=== PATIENT | female | born 1995 | race Caucasian/White ===

== ENCOUNTER 2022-01-17 05:50 | Emergency (ER) | payer MEDICAID ==
[~2022-01-17] VITALS: Ht 154.9 cm; Wt 87.0 kg
[2022-01-17 05:59] VITALS: BP 116/87
[2022-01-17 07:08] LABS: CLARITY URINE CLEAR (CLEAR); COLOR URINE YELLOW (YELLOW); KETONES URINE NEGATIVE (NEGATIVE); LEUKOCYTE ESTERASE URINE 1+ (NEGATIVE); NITRITE URINE NEGATIVE (NEGATIVE); OCCULT BLOOD URINE NEGATIVE (NEGATIVE); PROTEIN URINE NEGATIVE (NEGATIVE); SPECIFIC GRAVITY URINE 1.018 (1.005-1.030)
[2022-01-17 07:28] LABS: CHLORIDE 106 mEq/L (98-107)
[2022-01-17 07:34] LABS: BASOPHILS % 0.5 % (0.0-2.0); EOSINOPHILS % 2.1 % (0.0-5.0); HEMOGLOBIN. 8.7 g/dL (12.0-16.0); LYMPHOCYTES % 26.5 % (20.0-50.0); MEAN CORPUSCULAR HEMOGLOBIN 20.8 pg (28.0-32.0); MEAN PLATELET VOLUME 8.3 fl (7.4-10.4); MONOCYTES % 8.7 % (2.0-8.0); NEUTROPHILS % 62.2 % (40.0-76.0); PLATELET 306 x1000/uL (130-400); RED BLOOD CELL COUNT 4.19 mill/uL (4.2-5.4); RED CELL DISTRIBUTION WIDTH 18.5 % (11.6-14.6)
[2022-01-17 08:01] LABS: *AMPHETAMINES SCREEN URINE NEGATIVE (NEGATIVE); *BARBITURATES SCREEN URINE NEGATIVE (NEGATIVE); *BENZODIAZEPINES SCREEN URINE NEGATIVE (NEGATIVE); *COCAINE SCREEN URINE NEGATIVE (NEGATIVE); CANNABINOID URINE SCREEN NEGATIVE (NEGATIVE); METHADONE URINE SCREEN NEGATIVE (NEGATIVE); OPIATES URINE SCREEN NEGATIVE (NEGATIVE); PHENCYCLIDINE URINE SCREEN NEGATIVE (NEGATIVE)
[2022-01-17 08:01] LABS: B-HCG QUANTITATIVE 11463 mIU/mL (<3)
[2022-01-17 08:54] LABS: INR 0.9; PARTIAL THROMBOPLASTIN TIME 25.4 sec (23.4-31.0); PROTHROMBIN TIME 10.2 sec (9.6-11.0)
[2022-01-17 09:22] LABS: PLATELET ESTIMATE NORMAL
== END 2022-01-17 09:14 | disposition home or self-care (01) ==
LOC: ER 05:50
DX: O26.893 Other specified pregnancy related conditions, third trimester (principal); R21 Rash and other nonspecific skin eruption; B08.4 Enteroviral vesicular stomatitis with exanthem; Z3A.38 38 weeks gestation of pregnancy
CPT/HCPCS: 36415; 76805; 76818; 80053; 80305; 81003; 84702; 85025; 87070; 87430; 99284

== ENCOUNTER 2022-02-02 00:08 | Inpatient (IN) | payer MEDICAID ==
[~2022-02-02] VITALS: Ht 154.9 cm; Wt 88.0 kg
[2022-02-02] MEDS ORDERED: LACTATED RINGERS 1,000 ML IV SCH (01:15)
[2022-02-02] MEDS ORDERED: LACTATED RINGERS 1,000 ML IV ONE (01:15)
[2022-02-02 02:09] LABS: BASOPHILS % 0.3 % (0.0-2.0); EOSINOPHILS % 1.7 % (0.0-5.0); HEMATOCRIT. 28.5 % (36.0-48.0); HEMOGLOBIN. 9.2 g/dL (12.0-16.0); LYMPHOCYTES % 20.9 % (20.0-50.0); MEAN CORPUSCULAR HEMOGLOBIN 21.2 pg (28.0-32.0); MEAN CORPUSCULAR VOLUME 65.5 fL (81.0-99.0); MEAN PLATELET VOLUME 8.3 fl (7.4-10.4); MONOCYTES % 8.2 % (2.0-8.0); NEUTROPHILS % 68.9 % (40.0-76.0); PLATELET 348 x1000/uL (130-400); RED BLOOD CELL COUNT 4.35 mill/uL (4.2-5.4); RED CELL DISTRIBUTION WIDTH 19.2 % (11.6-14.6)
[2022-02-02 02:18] LABS: CLARITY URINE CLEAR (CLEAR); COLOR URINE YELLOW (YELLOW); KETONES URINE NEGATIVE (NEGATIVE); LEUKOCYTE ESTERASE URINE NEGATIVE (NEGATIVE); NITRITE URINE NEGATIVE (NEGATIVE); OCCULT BLOOD URINE NEGATIVE (NEGATIVE); PROTEIN URINE NEGATIVE (NEGATIVE); SPECIFIC GRAVITY URINE 1.018 (1.005-1.030); UROBILINOGEN URINE 0.2 E.U./dL (0.2-1.0)
[2022-02-02 02:21] LABS: INR 0.9; PROTHROMBIN TIME 10.2 sec (9.6-11.0)
[2022-02-02 02:29] LABS: *AMPHETAMINES SCREEN URINE NEGATIVE (NEGATIVE); *BARBITURATES SCREEN URINE NEGATIVE (NEGATIVE); *BENZODIAZEPINES SCREEN URINE NEGATIVE (NEGATIVE); *COCAINE SCREEN URINE NEGATIVE (NEGATIVE); CANNABINOID URINE SCREEN NEGATIVE (NEGATIVE); METHADONE URINE SCREEN NEGATIVE (NEGATIVE); OPIATES URINE SCREEN NEGATIVE (NEGATIVE); PHENCYCLIDINE URINE SCREEN NEGATIVE (NEGATIVE)
[2022-02-02 02:51] LABS: HEPATITIS B SURFACE ANTIGEN NEGATIVE
[2022-02-02 04:25] LABS: PLATELET ESTIMATE NORMAL
[2022-02-02] MEDS ORDERED: CEFAZOLIN SODIUM 1000MG/VIAL ONE (06:59)
[2022-02-02] MEDS ORDERED: OXYTOCIN 10 UNITS/ML 1ML ONE (06:59)
[2022-02-02] MEDS ORDERED: FENTANYL CITRATE/PF 50MCG/ML 2ML VIAL ONE (06:59)
[2022-02-02] MEDS ORDERED: ONDANSETRON HCL 4MG/2ML INJ ONE (06:59)
[2022-02-02] MEDS ORDERED: EPHEDRINE SULFATE 50MG/ML VIAL ONE (06:59)
[2022-02-02] MEDS ORDERED: DIPHENHYDRAMINE 50MG/ML VIAL ONE (07:00)
[2022-02-02] MEDS ORDERED: TERBUTALINE SULFATE 1MG/ML VIAL SUBCUT PRN (07:30)
[2022-02-02] MEDS ORDERED: KETOROLAC 60MG/2ML VIAL IM ONE (11:05)
[2022-02-02] MEDS ORDERED: MIDAZOLAM HCL 2 MG/2 ML VIAL ONE (11:10)
[2022-02-02] MEDS: OXYTOCIN 30 UNITS/500ML NS PMX 500 ML IV SCH ×2 (11:39→13:23)
[2022-02-02] MEDS ORDERED: LANOLIN OINT 7GM TUBE TOP PRN (12:30)
[2022-02-02] MEDS ORDERED: RHO(D) IMMUNE GLOBULIN 300 MCG/SYR IM PRN (12:30)
[2022-02-02] MEDS ORDERED: DIPHENHYDRAMINE 25MG CAPSULE PO PRN (12:30)
[2022-02-02] MEDS ORDERED: ONDANSETRON HCL 4MG/2ML INJ IV PRN (12:30)
[2022-02-02] MEDS ORDERED: IBUPROFEN 400MG TABLET PO PRN (12:30)
[2022-02-02] MEDS ORDERED: OXYTOCIN 30 UNITS/500ML NS PMX 500 ML IV SCH (12:30)
[2022-02-02] MEDS ORDERED: HYDROCODONE/ACETAMINOPHEN 5/325MG TABLET PO PRN (12:30)
[2022-02-02] MEDS ORDERED: BISACODYL 10MG SUPP PR PRN (12:30)
[2022-02-02] MEDS ORDERED: HEMORRHOIDAL SUPP PR PRN (12:30)
[2022-02-02] MEDS: SIMETHICONE 80MG TABLET CHEW PO SCH ×4 (13:00→21:00)
[2022-02-02] MEDS: BUTORPHANOL TARTRATE 2 MG/ML VIAL IV PRN ×2 (13:35→20:34)
[2022-02-02 14:10] VITALS: BP 121/75
[2022-02-02 14:40] VITALS: BP 126/75
[2022-02-02] MEDS: MAGNESIUM/ALUMINUM HYDROXIDE/SIMETHICONE 30ML UDC PO SCH ×2 (17:00→21:00)
[2022-02-02 20:00] VITALS: BP 118/63
[2022-02-03] VITALS: BP 124/65
[2022-02-03] MEDS ORDERED: KETOROLAC 30MG/ML VIAL IV PRN (01:15)
[2022-02-03 04:00] VITALS: BP 122/60
[2022-02-03 06:48] LABS: BASOPHILS % 0.2 % (0.0-2.0); EOSINOPHILS % 0.4 % (0.0-5.0); HEMATOCRIT. 26.3 % (36.0-48.0); HEMOGLOBIN. 7.9 g/dL (12.0-16.0); LYMPHOCYTES % 13.1 % (20.0-50.0); MEAN CORPUSCULAR HEMOGLOBIN 19.9 pg (28.0-32.0); MEAN CORPUSCULAR VOLUME 66.4 fL (81.0-99.0); MEAN PLATELET VOLUME 8.5 fl (7.4-10.4); MONOCYTES % 5.6 % (2.0-8.0); NEUTROPHILS % 80.7 % (40.0-76.0); PLATELET 342 x1000/uL (130-400); RED BLOOD CELL COUNT 3.96 mill/uL (4.2-5.4); RED CELL DISTRIBUTION WIDTH 19.3 % (11.6-14.6)
[2022-02-03] MEDS: MAGNESIUM/ALUMINUM HYDROXIDE/SIMETHICONE 30ML UDC PO SCH ×4 (07:30→21:01)
[2022-02-03 08:00] VITALS: BP 113/70
[2022-02-03] MEDS: SIMETHICONE 80MG TABLET CHEW PO SCH ×3 (08:00→21:02)
[2022-02-03] MEDS: IBUPROFEN 800MG TABLET PO PRN ×3 (09:04→23:26)
[2022-02-03] MEDS: FERROUS SULFATE 325MG TABLET PO SCH ×2 (09:04→15:03)
[2022-02-03 15:47] VITALS: BP 108/52
[2022-02-03 20:00] VITALS: BP 126/80
[2022-02-03] MEDS: DOCUSATE SODIUM 100MG CAPSULE PO SCH (21:01)
[2022-02-04 04:00] VITALS: BP 123/66
[2022-02-04 07:25] VITALS: BP 111/63
[2022-02-04] MEDS: PRENATAL VIT/FE FUMARATE/FA TABLET PO SCH (08:20)
[2022-02-04] MEDS: IBUPROFEN 800MG TABLET PO PRN ×2 (08:20→16:30)
[2022-02-04] MEDS: SIMETHICONE 80MG TABLET CHEW PO SCH ×3 (08:20→21:03)
[2022-02-04] MEDS: FERROUS SULFATE 325MG TABLET PO SCH ×2 (08:20→16:31)
[2022-02-04] MEDS: MAGNESIUM/ALUMINUM HYDROXIDE/SIMETHICONE 30ML UDC PO SCH ×3 (08:20→21:03)
[2022-02-04 10:13] LABS: CREATINE KINASE 209 IU/L (26-192)
[2022-02-04] MEDS ORDERED: IOHEXOL-350 100 ML BOTTLE ONE (15:12)
[2022-02-04 16:35] VITALS: BP 115/69
[2022-02-04 20:00] VITALS: BP 125/75
[2022-02-04] MEDS: DOCUSATE SODIUM 100MG CAPSULE PO SCH (21:03)
[2022-02-05 04:00] VITALS: BP 98/43
[2022-02-05] MEDS ORDERED: IBUP-2028 PO (04:58)
[2022-02-05] MEDS: MAGNESIUM/ALUMINUM HYDROXIDE/SIMETHICONE 30ML UDC PO SCH (07:30)
[2022-02-05 08:00] VITALS: BP 99/58
[2022-02-05] MEDS: SIMETHICONE 80MG TABLET CHEW PO SCH (08:00)
[2022-02-05] MEDS: PRENATAL VIT/FE FUMARATE/FA TABLET PO SCH ×2 (10:02→10:04)
[2022-02-05] MEDS: FERROUS SULFATE 325MG TABLET PO SCH (10:02)
== END 2022-02-05 11:10 | disposition home or self-care (01) | DRG 539 ==
LOC: OBSVTOIN 00:08 → 8 EST LDRP 00:08 → 8EST 17:56
PROVIDERS: ADMIT Obstetrics & Gynecology; ATTEND Obstetrics & Gynecology
PROC: 10D00Z1 Extraction of Products of Conception, Low, Open Approach (ICD-10-PCS; principal; 2022-02-02)
PROC: 0UB70ZZ Excision of Bilateral Fallopian Tubes, Open Approach (ICD-10-PCS; 2022-02-02)
DX: O34.211 Maternal care for low transverse scar from previous cesarean delivery (principal); O76 Abnormality in fetal heart rate and rhythm complicating labor and delivery; O90.81 Anemia of the puerperium; Z20.822 Contact with and (suspected) exposure to COVID-19; Z30.2 Encounter for sterilization; Z37.0 Single live birth; Z3A.39 39 weeks gestation of pregnancy; Z88.6 Allergy status to analgesic agent
CPT/HCPCS: 36415; 71275; 76856; 80305; 81003; 82550; 82565; 84520; 85025; 86592; 86703; 86762; 86850; 86900; 87340; 87426; 88302; 88307; 93970; 99281; J0595; J0690; J1200; J1885; J2250; J2405; J3010; J3105; J3490; J7120; Q9967; J2590